=== PATIENT | female | born 1960 | race Caucasian/White ===

== ENCOUNTER 2021-04-19 14:58 | Inpatient (IN) ==
[2021-04-19] MEDS ORDERED: Magnesium Sulfate 2 gm BAG 2 GM/50 ML BAG IVPB ONE (15:19)
[2021-04-19] MEDS ORDERED: methylPREDNISolone 125 mg 2 ML VIAL IV ONE (15:19)
[2021-04-19] MEDS ORDERED: Albuterol HFA INHALER 8 gm MDI INH ONE (15:22)
[2021-04-19 15:42] LABS: ABS Basophils 0.1 10^3/ul (0-0.2); ABS Lymphocytes 1.8 10^3/ul (1.0-4.8); ABS Monocytes 0.9 10^3/ul (0-0.8); ABS Neutrophils 9.9 10^3/ul (1.5-7.7); Eosinophil % 0.1 %; Hematocrit 54 % (35-47); Hemoglobin 18.1 g/dL (12.0-16.0); Lymphocyte % 14.4 %; Mean Corpuscular HGB Conc 33 g/dL (31-36); Mean Corpuscular Hemoglobin 31 pg (27-31); Mean Corpuscular Volume 93 fL (80-97); Mean Platelet Volume 8.5 fL (7.4-10.4); Nucleated Red Blood Cells % 0.1; Platelet Count 210 10^3/uL (150-450); Red Blood Count 5.86 10^6 /uL (3.70-4.87); Red Cell Distribution Width 16 % (10-15); White Blood Count 12.7 10^3/uL (3.5-10.8)
[2021-04-19 16:08] LABS: ALT 21 U/L (7-52); AST 23 U/L (13-39); Albumin 4.1 g/dL (3.2-5.2); Albumin/Globulin Ratio 0.9 (1-3); Alkaline Phosphatase 117 U/L (35-149); Anion Gap 8 mmol/L (2-11); Blood Urea Nitrogen 13 mg/dL (6-24); CO2 Carbon Dioxide 29 mmol/L (22-32); Calcium 9.4 mg/dL (8.6-10.3); Chloride 101 mmol/L (101-111); EGFR African American 109.8 (>60); EGFR Non-African American 90.7 (>60); Globulin 4.7 g/dL (2-4); Glucose 140 mg/dL (70-100); Potassium 4.1 mmol/L (3.5-5.0); Sodium 138 mmol/L (135-145); Total Protein 8.8 g/dL (6.4-8.9)
[2021-04-19] MEDS ORDERED: Iodixanol (CONTRAST) 320 MG/ML 100 ML SDV IV ONE (17:39)
[2021-04-19 19:37] LABS: Troponin I 0.35 ng/mL (<0.03)
[2021-04-19 19:52] LABS: Troponin I 0.01 ng/mL (<0.03)
[2021-04-19] MEDS ORDERED: Furosemide 20 mg/2 ml IV VIAL IV ONE (21:42)
[2021-04-19 22:56] LABS: Urine Appearance Clear; Urine Bacteria 3+ (Absent); Urine Bilirubin Negative (Negative); Urine Blood 1+ (Negative); Urine Color Amber; Urine Glucose Negative (Negative); Urine Ketones 1+ (Negative); Urine Nitrite Positive (Negative); Urine Protein 2+(100 mg/dL) (Negative); Urine Red Blood Cell 1+(3-5/hpf) (Absent); Urine Squamous Epithelial Cell Present (Absent); Urine Urobilinogen Negative (Negative); Urine White Blood Cell 3+(>20/hpf) (Absent)
[2021-04-19] MEDS ORDERED: Albuterol/Ipratropium NEB.SOL (2.5/0.5 MG) 3 ML NEB.SOLN INH SCH (23:00)
[2021-04-20] MEDS: cefTRIAXone 1 gm/50 mL NS BAG 1 GM/50 ML BAG IVPB SCH ×2 (00:35→23:51)
[2021-04-20] MEDS: methylPREDNISolone SOD 40 mg/ml 1 ml VIAL IV SCH ×4 (00:35→23:51)
[2021-04-20] MEDS ORDERED: Albuterol/Ipratropium NEB.SOL (2.5/0.5 MG) 3 ML NEB.SOLN INH SCH (01:00)
[2021-04-20 01:10] LABS: Troponin I 0.51 ng/mL (<0.03)
[2021-04-20 01:49] LABS: Urine Specific Gravity > 1.060 (1.002-1.030)
[2021-04-20] MEDS: Albuterol/Ipratropium NEB.SOL (2.5/0.5 MG) 3 ML NEB.SOLN INH SCH ×5 (03:20→23:29)
[2021-04-20 06:19] LABS: INR 1.1 (0.82-1.09)
[2021-04-20] MEDS: Nystatin TOP POWDER 15 GM BTL TOPICAL SCH ×3 (06:33→20:52)
[2021-04-20 06:55] LABS: ABS Lymphocytes 0.5 10^3/ul (1.0-4.8); ABS Monocytes 0.2 10^3/ul (0-0.8); ABS Neutrophils 12.5 10^3/ul (1.5-7.7); Hematocrit 51 % (35-47); Hemoglobin 16.9 g/dL (12.0-16.0); Lymphocyte % 3.8 %; Mean Corpuscular HGB Conc 33 g/dL (31-36); Mean Corpuscular Hemoglobin 31 pg (27-31); Mean Corpuscular Volume 92 fL (80-97); Mean Platelet Volume 8.7 fL (7.4-10.4); Platelet Count 181 10^3/uL (150-450); Red Blood Count 5.54 10^6 /uL (3.70-4.87); Red Cell Distribution Width 16 % (10-15); White Blood Count 13.2 10^3/uL (3.5-10.8)
[2021-04-20 07:35] LABS: Anion Gap 7 mmol/L (2-11); Blood Urea Nitrogen 16 mg/dL (6-24); CO2 Carbon Dioxide 28 mmol/L (22-32); Calcium 9.2 mg/dL (8.6-10.3); Chloride 102 mmol/L (101-111); EGFR African American 113.8 (>60); Glucose 139 mg/dL (70-100); Magnesium 2.2 mg/dL (1.9-2.7); Potassium 3.9 mmol/L (3.5-5.0); Sodium 137 mmol/L (135-145)
[2021-04-20 07:39] LABS: Troponin I 0.43 ng/mL (<0.03)
[2021-04-20] MEDS ORDERED: Perflutren Lipid Microsphere 3 ML VIAL ONE (08:51)
[2021-04-20] MEDS: Heparin 5000 UNITS/ML 1 mL VIAL SUBCUT SCH ×2 (09:32→20:52)
[2021-04-21 02:56] LABS: ABS Lymphocytes 0.5 10^3/ul (1.0-4.8); ABS Monocytes 0.5 10^3/ul (0-0.8); ABS Neutrophils 14.1 10^3/ul (1.5-7.7); Hematocrit 51 % (35-47); Hemoglobin 16.9 g/dL (12.0-16.0); Mean Corpuscular HGB Conc 33 g/dL (31-36); Mean Corpuscular Hemoglobin 31 pg (27-31); Mean Corpuscular Volume 93 fL (80-97); Mean Platelet Volume 8.5 fL (7.4-10.4); Nucleated Red Blood Cells % 0.1; Platelet Count 183 10^3/uL (150-450); Red Blood Count 5.48 10^6 /uL (3.70-4.87); Red Cell Distribution Width 16 % (10-15); White Blood Count 15.1 10^3/uL (3.5-10.8)
[2021-04-21 03:17] LABS: Blood Urea Nitrogen 23 mg/dL (6-24); CO2 Carbon Dioxide 29 mmol/L (22-32); Calcium 9.2 mg/dL (8.6-10.3); Chloride 104 mmol/L (101-111); EGFR Non-African American 97.5 (>60); Glucose 143 mg/dL (70-100); Magnesium 2.3 mg/dL (1.9-2.7); Phosphorus 3.1 mg/dL (2.5-5.0); Sodium 137 mmol/L (135-145)
[2021-04-21 03:24] LABS: Troponin I 0.41 ng/mL (<0.03)
[2021-04-21 03:36] LABS: Anion Gap 4 mmol/L (2-11)
[2021-04-21] MEDS: Albuterol/Ipratropium NEB.SOL (2.5/0.5 MG) 3 ML NEB.SOLN INH SCH ×3 (07:52→19:38)
[2021-04-21] MEDS: Nystatin TOP POWDER 15 GM BTL TOPICAL SCH ×3 (08:39→20:50)
[2021-04-21] MEDS: methylPREDNISolone SOD 40 mg/ml 1 ml VIAL IV SCH ×2 (08:39→20:50)
[2021-04-21] MEDS: Heparin 5000 UNITS/ML 1 mL VIAL SUBCUT SCH ×2 (08:39→21:00)
[2021-04-21] MEDS ORDERED: methylPREDNISolone SOD 40 mg/ml 1 ml VIAL IV SCH (09:00)
[2021-04-21] MEDS ORDERED: Buffered Lidocaine 1% SYRIN 1 ml INTRADERM ONE (10:12)
[2021-04-21] MEDS: DOXYcycline 100 MG in NS 0.9% 250 ml 250 ML IVPB SCH ×3 (11:57→21:58)
[2021-04-21] MEDS ORDERED: Furosemide 40 mg/4 ml IV VIAL IV ONE (16:56)
[2021-04-21] MEDS: Saline FLUSH-CENTRAL 10 ML SYRINGE CENT\\PICC SCH (20:50)
[2021-04-22] MEDS: Albuterol/Ipratropium NEB.SOL (2.5/0.5 MG) 3 ML NEB.SOLN INH SCH ×4 (00:54→19:40)
[2021-04-22] MEDS: cefTRIAXone 1 gm/50 mL NS BAG 1 GM/50 ML BAG IVPB SCH (00:59)
[2021-04-22] MEDS: DOXYcycline 100 MG in NS 0.9% 250 ml 250 ML IVPB SCH ×2 (02:06→13:27)
[2021-04-22 04:26] LABS: ABS Lymphocytes 0.5 10^3/ul (1.0-4.8); ABS Monocytes 0.5 10^3/ul (0-0.8); ABS Neutrophils 12.8 10^3/ul (1.5-7.7); Hematocrit 52 % (35-47); Hemoglobin 17.3 g/dL (12.0-16.0); Lymphocyte % 3.5 %; Mean Corpuscular HGB Conc 33 g/dL (31-36); Mean Corpuscular Hemoglobin 31 pg (27-31); Mean Corpuscular Volume 93 fL (80-97); Mean Platelet Volume 8.4 fL (7.4-10.4); Platelet Count 177 10^3/uL (150-450); Red Blood Count 5.62 10^6 /uL (3.70-4.87); Red Cell Distribution Width 16 % (10-15); White Blood Count 13.8 10^3/uL (3.5-10.8)
[2021-04-22 04:43] LABS: Calcium 9.2 mg/dL (8.6-10.3); EGFR African American 120.3 (>60); EGFR Non-African American 99.4 (>60); Phosphorus 2.7 mg/dL (2.5-5.0); Potassium 4.1 mmol/L (3.5-5.0)
[2021-04-22] MEDS: methylPREDNISolone SOD 40 mg/ml 1 ml VIAL IV SCH ×2 (07:57→20:24)
[2021-04-22] MEDS: Heparin 5000 UNITS/ML 1 mL VIAL SUBCUT SCH ×2 (07:57→20:24)
[2021-04-22] MEDS: Nystatin TOP POWDER 15 GM BTL TOPICAL SCH ×3 (07:58→20:25)
[2021-04-22] MEDS: Saline FLUSH-CENTRAL 10 ML SYRINGE CENT\\PICC SCH ×2 (07:58→23:35)
[2021-04-23] MEDS: cefTRIAXone 1 gm/50 mL NS BAG 1 GM/50 ML BAG IVPB SCH (00:29)
[2021-04-23] MEDS: DOXYcycline 100 MG in NS 0.9% 250 ml 250 ML IVPB SCH ×2 (01:18→14:44)
[2021-04-23] MEDS: Albuterol/Ipratropium NEB.SOL (2.5/0.5 MG) 3 ML NEB.SOLN INH SCH ×3 (07:14→19:04)
[2021-04-23] MEDS: methylPREDNISolone SOD 40 mg/ml 1 ml VIAL IV SCH ×2 (08:35→20:11)
[2021-04-23] MEDS: Heparin 5000 UNITS/ML 1 mL VIAL SUBCUT SCH ×2 (08:35→20:12)
[2021-04-23] MEDS: Saline FLUSH-CENTRAL 10 ML SYRINGE CENT\\PICC SCH ×2 (08:40→20:12)
[2021-04-23] MEDS: Nystatin TOP POWDER 15 GM BTL TOPICAL SCH ×3 (08:41→20:18)
[2021-04-23 09:38] LABS: ABS Lymphocytes 0.6 10^3/ul (1.0-4.8); ABS Monocytes 0.4 10^3/ul (0-0.8); ABS Neutrophils 8.9 10^3/ul (1.5-7.7); Hematocrit 53 % (35-47); Hemoglobin 17.5 g/dL (12.0-16.0); Lymphocyte % 6.4 %; Mean Corpuscular HGB Conc 33 g/dL (31-36); Mean Corpuscular Hemoglobin 31 pg (27-31); Mean Corpuscular Volume 94 fL (80-97); Mean Platelet Volume 8.7 fL (7.4-10.4); Nucleated Red Blood Cells % 0.1; Platelet Count 181 10^3/uL (150-450); Red Blood Count 5.69 10^6 /uL (3.70-4.87); Red Cell Distribution Width 16 % (10-15); White Blood Count 9.9 10^3/uL (3.5-10.8)
[2021-04-23 09:55] LABS: Calcium 9.4 mg/dL (8.6-10.3); EGFR Non-African American 97.5 (>60); Phosphorus 3.1 mg/dL (2.5-5.0); Potassium 4.2 mmol/L (3.5-5.0)
[2021-04-23] MEDS: Carbamide Peroxide 6.5% OTIC 15 ML BTL BOTH EARS SCH ×2 (14:43→20:11)
[2021-04-24] MEDS: cefTRIAXone 1 gm/50 mL NS BAG 1 GM/50 ML BAG IVPB SCH (01:05)
[2021-04-24] MEDS: DOXYcycline 100 MG in NS 0.9% 250 ml 250 ML IVPB SCH (02:15)
[2021-04-24] MEDS: Albuterol/Ipratropium NEB.SOL (2.5/0.5 MG) 3 ML NEB.SOLN INH SCH ×4 (03:54→19:16)
[2021-04-24 06:17] LABS: ABS Lymphocytes 0.7 10^3/ul (1.0-4.8); ABS Monocytes 0.6 10^3/ul (0-0.8); ABS Neutrophils 7.9 10^3/ul (1.5-7.7); Hematocrit 53 % (35-47); Hemoglobin 17.5 g/dL (12.0-16.0); Lymphocyte % 7.4 %; Mean Corpuscular HGB Conc 33 g/dL (31-36); Mean Corpuscular Hemoglobin 31 pg (27-31); Mean Corpuscular Volume 93 fL (80-97); Mean Platelet Volume 8.7 fL (7.4-10.4); Platelet Count 163 10^3/uL (150-450); Red Blood Count 5.62 10^6 /uL (3.70-4.87); Red Cell Distribution Width 16 % (10-15); White Blood Count 9.1 10^3/uL (3.5-10.8)
[2021-04-24 06:26] LABS: Calcium 9.2 mg/dL (8.6-10.3); Potassium 4.4 mmol/L (3.5-5.0)
[2021-04-24 06:32] LABS: EGFR African American 113.8 (>60); Phosphorus 2.9 mg/dL (2.5-5.0)
[2021-04-24] MEDS: Carbamide Peroxide 6.5% OTIC 15 ML BTL BOTH EARS SCH ×2 (08:49→21:16)
[2021-04-24] MEDS: Heparin 5000 UNITS/ML 1 mL VIAL SUBCUT SCH ×2 (08:51→21:15)
[2021-04-24] MEDS: methylPREDNISolone SOD 40 mg/ml 1 ml VIAL IV SCH ×2 (08:53→21:10)
[2021-04-24] MEDS: Saline FLUSH-CENTRAL 10 ML SYRINGE CENT\\PICC SCH ×2 (08:58→21:16)
[2021-04-24] MEDS: Nystatin TOP POWDER 15 GM BTL TOPICAL SCH ×3 (08:58→21:15)
[2021-04-25] MEDS: cefTRIAXone 1 gm/50 mL NS BAG 1 GM/50 ML BAG IVPB SCH (00:01)
[2021-04-25 06:18] LABS: ABS Lymphocytes 0.6 10^3/ul (1.0-4.8); ABS Monocytes 0.4 10^3/ul (0-0.8); ABS Neutrophils 8.2 10^3/ul (1.5-7.7); Hematocrit 51 % (35-47); Mean Corpuscular HGB Conc 34 g/dL (31-36); Mean Corpuscular Hemoglobin 31 pg (27-31); Mean Corpuscular Volume 93 fL (80-97); Mean Platelet Volume 8.8 fL (7.4-10.4); Platelet Count 160 10^3/uL (150-450); Red Blood Count 5.48 10^6 /uL (3.70-4.87); Red Cell Distribution Width 16 % (10-15); White Blood Count 9.3 10^3/uL (3.5-10.8)
[2021-04-25 06:45] LABS: Calcium 8.7 mg/dL (8.6-10.3); EGFR African American 141.4 (>60); EGFR Non-African American 116.9 (>60); Potassium 4.4 mmol/L (3.5-5.0)
[2021-04-25] MEDS: Albuterol/Ipratropium NEB.SOL (2.5/0.5 MG) 3 ML NEB.SOLN INH SCH (07:12)
[2021-04-25] MEDS ORDERED: Albuterol/Ipratropium NEB.SOL (2.5/0.5 MG) 3 ML NEB.SOLN INH PRN (07:17)
[2021-04-25] MEDS: Heparin 5000 UNITS/ML 1 mL VIAL SUBCUT SCH ×2 (09:00→20:53)
[2021-04-25] MEDS: Nystatin TOP POWDER 15 GM BTL TOPICAL SCH ×3 (09:00→20:53)
[2021-04-25] MEDS: Carbamide Peroxide 6.5% OTIC 15 ML BTL BOTH EARS SCH ×2 (09:00→20:53)
[2021-04-25] MEDS: Saline FLUSH-CENTRAL 10 ML SYRINGE CENT\\PICC SCH ×3 (09:01→21:07)
[2021-04-25] MEDS ORDERED: Alteplase (CATHFLO) 2 MG VIAL IV ONE (12:01)
[2021-04-26] MEDS: cefTRIAXone 1 gm/50 mL NS BAG 1 GM/50 ML BAG IVPB SCH ×3 (00:15→23:04)
[2021-04-26] MEDS: Nystatin TOP POWDER 15 GM BTL TOPICAL SCH ×3 (09:05→21:04)
[2021-04-26] MEDS: Carbamide Peroxide 6.5% OTIC 15 ML BTL BOTH EARS SCH ×2 (09:09→20:22)
[2021-04-26] MEDS: Heparin 5000 UNITS/ML 1 mL VIAL SUBCUT SCH ×2 (09:09→20:20)
[2021-04-26] MEDS: Saline FLUSH-CENTRAL 10 ML SYRINGE CENT\\PICC SCH ×2 (09:09→21:05)
[2021-04-27 07:47] VITALS: BP 119/71
== END 2021-04-27 08:07 | disposition home or self-care (01) | DRG 720 ==
LOC: ED 14:58 → ICU 20:50 → MEDTELE 04-22 17:33
PROVIDERS: ADMIT Hospitalist; ATTEND Internal Medicine

== ENCOUNTER 2023-12-14 18:26 | Inpatient (IN) ==
[2023-12-14] MEDS ORDERED: Albuterol/Ipratropium NEB.SOL (2.5/0.5 MG) 3 ML NEB.SOLN ONE (18:34)
[2023-12-14] MEDS: Albuterol/Ipratropium NEB.SOL (2.5/0.5 MG) 3 ML NEB.SOLN INH ONE ×2 (18:36→21:30)
[2023-12-14] MEDS: Acetylcysteine INHALATION SOL 200 MG/ML NEB.SOLN 10 ML INH ONE (18:50)
[2023-12-14 19:08] LABS: ABS Lymphocytes 1.6 10^3/uL (1.0-4.8); ABS Monocytes 1.1 10^3/uL (0.0-0.9); ABS Neutrophils 8.1 10^3/uL (1.5-7.6); ABS Nucleated RBC 0.02 10^3/ul; Eosinophil % 0.3 %; Hematocrit 47.7 % (35-45); Lymphocyte % 14.7 %; Mean Corpuscular Hemoglobin 30.1 pg (27-33); Mean Corpuscular Hgb Conc 33.6 g/dL (31-36); Mean Corpuscular Volume 89.5 fL (80-97); Mean Platelet Volume 8.1 fL (7.5-11.2); Nucleated Red Blood Cells % 0.2 %/100WBC (0.0-0.8); Platelet Count 221 10^3/uL (150-450); Red Blood Count 5.33 10^6/uL (3.63-4.92); Red Cell Distribution Width 15.2 % (12-17); White Blood Count 10.9 10^3/uL (3.8-11.8)
[2023-12-14 19:23] LABS: Venous Bicarbonate HCO3 32.4 mmol/L (24-28)
[2023-12-14 19:25] LABS: Albumin 3.9 g/dL (3.2-5.2); Albumin/Globulin Ratio 0.8 (1-3); C Reactive Protein 110.19 mg/L (<8.01); Calcium 9.2 mg/dL (8.6-10.3); Creatinine, Serum 0.66 mg/dL (0.51-0.95); Globulin 4.6 g/dL (2-4); Potassium 3.5 mmol/L (3.5-5.0); Total Protein 8.5 g/dL (6.4-8.9); eGFR CKD-EPI 97.9 (>60)
[2023-12-14 19:37] LABS: Magnesium 1.8 mg/dL (1.9-2.7)
[2023-12-14] MEDS: methylPREDNISolone SOD SUCC 125 mg 2 ML VIAL IV ONE (19:50)
[2023-12-14] MEDS: Magnesium Sulfate 2 gm BAG 2 GM/50 ML BAG IVPB ONE (19:50)
[2023-12-14] MEDS: Iodixanol (CONTRAST) 320 MG/ML 100 ML SDV IV ONE (20:55)
[2023-12-14] MEDS: cefTRIAXone 1 gm/50 mL D5W 1 GM/50 ML BAG IV ONE (20:57)
[2023-12-14] MEDS: Azithromycin 500 mg/250 ml NS 500 MG/250 ML BAG IVPB ONE (21:31)
[2023-12-14 21:36] LABS: High Sensitivity Troponin 1 Hr 8 pg/mL (<15)
[2023-12-14] MEDS ORDERED: Senna TAB 8.6 mg TAB PO PRN (23:39)
[2023-12-14] MEDS ORDERED: Ondansetron 4 mg VIAL 2 MG/ML 2 ml VIAL IV PRN (23:39)
[2023-12-14 23:54] LABS: Urine Appearance Clear; Urine Bacteria Absent /HPF (Absent); Urine Bilirubin Negative (Negative); Urine Blood 3+ (Negative); Urine Color Yellow; Urine Glucose Negative (Negative); Urine Ketones 2+ (Negative); Urine Nitrite Negative (Negative); Urine Protein 1+ (>=30 mg/dL) (Negative); Urine Red Blood Cell 3+(>10/hpf) /HPF (0-Trace); Urine Specific Gravity >1.050 (1.002-1.030); Urine Squamous Epithelial Cell Present /HPF (Absent); Urine Urobilinogen 1+ (Negative); Urine White Blood Cell Trace(0-5/hpf) /HPF (0-Trace); Urine pH 5.5 (5.0-8.0)
[2023-12-15] MEDS: Albuterol/Ipratropium NEB.SOL (2.5/0.5 MG) 3 ML NEB.SOLN INH SCH (00:03)
[2023-12-15] MEDS: methylPREDNISolone SOD SUCC 40 mg/ml 1 ml VIAL IV SCH (04:08)
[2023-12-15 06:08] LABS: ABS Lymphocytes 0.5 10^3/uL (1.0-4.8); ABS Monocytes 0.1 10^3/uL (0.0-0.9); ABS Neutrophils 8.9 10^3/uL (1.5-7.6); Hematocrit 44.4 % (35-45); Lymphocyte % 4.9 %; Mean Corpuscular Hemoglobin 30.4 pg (27-33); Mean Corpuscular Hgb Conc 33.8 g/dL (31-36); Mean Corpuscular Volume 89.8 fL (80-97); Mean Platelet Volume 8.2 fL (7.5-11.2); Platelet Count 201 10^3/uL (150-450); Red Blood Count 4.94 10^6/uL (3.63-4.92); Red Cell Distribution Width 15.3 % (12-17); White Blood Count 9.5 10^3/uL (3.8-11.8)
[2023-12-15 06:27] LABS: Albumin 3.6 g/dL (3.2-5.2); Albumin/Globulin Ratio 0.9 (1-3); Calcium 8.7 mg/dL (8.6-10.3); Creatinine, Serum 0.49 mg/dL (0.51-0.95); Globulin 4.1 g/dL (2-4); Potassium 3.9 mmol/L (3.5-5.0); Total Bilirubin 0.7 mg/dL (0.2-1.0); Total Protein 7.7 g/dL (6.4-8.9); eGFR CKD-EPI 105.2 (>60)
[2023-12-15 08:36] LABS: Magnesium 2.3 mg/dL (1.9-2.7)
[2023-12-15] MEDS: Ammonium Lactate 12% 1 APPLIC TUBE TOPICAL SCH (10:20)
[2023-12-15] MEDS ORDERED: Azithromycin 250 MG in NS 0.9% 250 ml 250 ML IVPB SCH (20:00)
[2023-12-15] MEDS: Azithromycin 250 MG in NS 0.9% 250 ml 250 ML IVPB SCH (20:22)
[2023-12-15] MEDS ORDERED: cefTRIAXone 1 gm/50 mL D5W 1 GM/50 ML BAG IV SCH (21:00)
[2023-12-15] MEDS: cefTRIAXone 1 gm/50 mL NS BAG 1 GM/50 ML BAG IV SCH (21:45)
[2023-12-16 06:22] LABS: ABS Basophils 0.1 10^3/uL (0.0-0.1); ABS Monocytes 0.5 10^3/uL (0.0-0.9); ABS Neutrophils 11.5 10^3/uL (1.5-7.6); ABS Nucleated RBC 0.01 10^3/ul; Hematocrit 43.6 % (35-45); Hemoglobin 14.6 g/dL (11.5-14.3); Lymphocyte % 7.8 %; Mean Corpuscular Hgb Conc 33.6 g/dL (31-36); Mean Corpuscular Volume 89.4 fL (80-97); Mean Platelet Volume 8.1 fL (7.5-11.2); Nucleated Red Blood Cells % 0.1 %/100WBC (0.0-0.8); Platelet Count 250 10^3/uL (150-450); Red Blood Count 4.87 10^6/uL (3.63-4.92); Red Cell Distribution Width 15.4 % (12-17); White Blood Count 13.1 10^3/uL (3.8-11.8)
[2023-12-16 06:38] LABS: Calcium 9.2 mg/dL (8.6-10.3); Creatinine, Serum 0.56 mg/dL (0.51-0.95); Potassium 4.1 mmol/L (3.5-5.0); eGFR CKD-EPI 101.8 (>60)
[2023-12-16] MEDS ORDERED: Albuterol/Ipratropium NEB.SOL (2.5/0.5 MG) 3 ML NEB.SOLN INH PRN (06:42)
[2023-12-16] MEDS: Nystatin TOP POWDER 15 GM BTL TOPICAL SCH (14:26)
[2023-12-17] MEDS: Lidocaine PATCH 5% PATCH TRANSDERM SCH (15:45)
[2023-12-17 15:54] LABS: INR 1.16 (0.83-1.13)
[2023-12-17] MEDS: Lactated Ringers 1000 ml BAG 500 ML IV ONE (22:01)
[2023-12-17] MEDS: Lactated Ringers 1000 ml BAG 1,000 ML IV SCH (22:36)
[2023-12-18] MEDS: Lactated Ringers 1000 ml BAG 500 ML IV ONE ×2 (00:40→22:24)
[2023-12-18 00:54] LABS: Hematocrit 32.8 % (35-45); Hemoglobin 11.1 g/dL (11.5-14.3); Mean Corpuscular Hemoglobin 29.9 pg (27-33); Mean Corpuscular Hgb Conc 33.8 g/dL (31-36); Mean Corpuscular Volume 88.6 fL (80-97); Mean Platelet Volume 8.4 fL (7.5-11.2); Platelet Count 274 10^3/uL (150-450); White Blood Count 20.9 10^3/uL (3.8-11.8)
[2023-12-18 01:12] LABS: Calcium 8.5 mg/dL (8.6-10.3); Creatinine, Serum 1.17 mg/dL (0.51-0.95); Globulin 3.1 g/dL (2-4); Potassium 4.2 mmol/L (3.5-5.0); Total Bilirubin 0.8 mg/dL (0.2-1.0); Total Protein 6.1 g/dL (6.4-8.9); eGFR CKD-EPI 52.1 (>60)
[2023-12-18] MEDS: Iodixanol (CONTRAST) 320 MG/ML 100 ML SDV IV ONE (03:48)
[2023-12-18 05:21] LABS: Hematocrit 28.9 % (35-45); Hemoglobin 9.7 g/dL (11.5-14.3); Mean Corpuscular Hemoglobin 29.8 pg (27-33); Mean Corpuscular Hgb Conc 33.5 g/dL (31-36); Mean Corpuscular Volume 89.1 fL (80-97); Mean Platelet Volume 8.5 fL (7.5-11.2); Platelet Count 234 10^3/uL (150-450); Red Blood Count 3.25 10^6/uL (3.63-4.92); Red Cell Distribution Width 14.9 % (12-17); White Blood Count 23.7 10^3/uL (3.8-11.8)
[2023-12-18 05:25] LABS: Calcium 8.2 mg/dL (8.6-10.3); Creatinine, Serum 1.41 mg/dL (0.51-0.95); Potassium 4.3 mmol/L (3.5-5.0); eGFR CKD-EPI 41.7 (>60)
[2023-12-18 05:29] LABS: ABS Basophils 0.1 10^3/uL (0.0-0.1); ABS Lymphocytes 2.4 10^3/uL (1.0-4.8); ABS Monocytes 2.6 10^3/uL (0.0-0.9); ABS Neutrophils 18.7 10^3/uL (1.5-7.6); ABS Nucleated RBC 0.02 10^3/ul; Nucleated Red Blood Cells % 0.1 %/100WBC (0.0-0.8)
[2023-12-18] MEDS: HYDROmorphone 0.5 MG/0.5 ML SYRINGE ONE ×2 (05:56→07:14)
[2023-12-18 06:36] LABS: ABS Basophils 0.2 10^3/uL (0.0-0.1); ABS Lymphocytes 2.1 10^3/uL (1.0-4.8); ABS Monocytes 2.1 10^3/uL (0.0-0.9); ABS Neutrophils 16.6 10^3/uL (1.5-7.6); ABS Nucleated RBC 0.01 10^3/ul; Eosinophil % 0.2 %
[2023-12-18 06:37] LABS: RBC Morphology Normal (Normal)
[2023-12-18] MEDS: HYDROmorphone 0.5 MG/0.5 ML SYRINGE IV SLOW PU PRN (06:42)
[2023-12-18] MEDS: Acetaminophen IV 1 GM/100ML 1,000 MG/100 ML BAG IV ONE (07:12)
[2023-12-18 08:17] LABS: Hematocrit 37.4 % (35-45); Hemoglobin 12.4 g/dL (11.5-14.3); Mean Corpuscular Hemoglobin 28.7 pg (27-33); Mean Corpuscular Hgb Conc 33.1 g/dL (31-36); Mean Corpuscular Volume 86.7 fL (80-97); Mean Platelet Volume 8.4 fL (7.5-11.2); Platelet Count 191 10^3/uL (150-450); Red Blood Count 4.31 10^6/uL (3.63-4.92); Red Cell Distribution Width 16.4 % (12-17); White Blood Count 22.7 10^3/uL (3.8-11.8)
[2023-12-18 08:19] LABS: ABS Lymphocytes 2.2 10^3/uL (1.0-4.8); ABS Monocytes 2.5 10^3/uL (0.0-0.9); ABS Nucleated RBC 0.01 10^3/ul; Lymphocyte % 9.6 %
[2023-12-18 08:36] LABS: Creatinine, Serum 1.37 mg/dL (0.51-0.95); Potassium 4.3 mmol/L (3.5-5.0); eGFR CKD-EPI 43.1 (>60)
[2023-12-18] MEDS: Acetaminophen IV 1 GM/100ML 1,000 MG/100 ML BAG IV SCH (08:54)
[2023-12-18] MEDS: NORMOSOL-R pH 7.4 1000 mL BAG 1,000 ML IV SCH (08:56)
[2023-12-18] MEDS ORDERED: NORMOSOL-R pH 7.4 1000 mL BAG 1,000 ML IV SCH ×2 (09:00)
[2023-12-18 09:01] LABS: Activated Partial Thrombo Time 33.6 seconds (26.0-38.0)
[2023-12-18] MEDS ORDERED: Senna TAB 8.6 mg TAB PO PRN (10:16)
[2023-12-18] MEDS ORDERED: HYDROmorphone 1 MG/1 ML SYRINGE IV PRN (10:28)
[2023-12-18] MEDS: Norepinephrine 4 MG/250mL D5W 4,000 MCG/250 ML BAG IV SCH ×2 (11:26→12:00)
[2023-12-18] MEDS: Norepinephrine 4 MG/250mL D5W 4,000 MCG/250 ML BAG IV ONE (11:37)
[2023-12-18] MEDS: methylPREDNISolone SOD SUCC 40 mg/ml 1 ml VIAL IV SCH (11:55)
[2023-12-18 12:19] LABS: Hematocrit 38.3 % (35-45); Hemoglobin 12.8 g/dL (11.5-14.3); Mean Corpuscular Hgb Conc 33.4 g/dL (31-36); Mean Corpuscular Volume 86.7 fL (80-97); Mean Platelet Volume 8.7 fL (7.5-11.2); Platelet Count 185 10^3/uL (150-450); Red Blood Count 4.42 10^6/uL (3.63-4.92); Red Cell Distribution Width 15.9 % (12-17); White Blood Count 25.7 10^3/uL (3.8-11.8)
[2023-12-18 12:20] LABS: Urine Appearance Turbid; Urine Bacteria 1+ /HPF (Absent); Urine Bilirubin Negative (Negative); Urine Blood 2+ (Negative); Urine Color Dark-Yellow; Urine Glucose Trace (Negative); Urine Ketones Negative (Negative); Urine Nitrite Negative (Negative); Urine Protein 2+ (>=100 mg/dL) (Negative); Urine Red Blood Cell 3+(>10/hpf) /HPF (0-Trace); Urine Specific Gravity >1.050 (1.002-1.030); Urine Squamous Epithelial Cell Present /HPF (Absent); Urine Urobilinogen 1+ (Negative); Urine White Blood Cell 1+(6-10/hpf) /HPF (0-Trace); Urine pH 5.5 (5.0-8.0)
[2023-12-18] MEDS ORDERED: Heparin 2 UNITS/ML IVPREMIX 3,000 UNIT/1,500 ML BAG IV ONE (14:38)
[2023-12-18] MEDS ORDERED: Lidocaine 1% VIAL 10 MG/ML 30 ML VIAL ONE (14:38)
[2023-12-18] MEDS ORDERED: Iohexol 350 (CONTRAST) 100 ML PAK IV ONE (14:38)
[2023-12-18] MEDS ORDERED: Iodixanol 320 (CONTRAST) 100 ML SDV ONE ×2 (14:40→15:57)
[2023-12-18] MEDS ORDERED: Midazolam 5 mg/5 ml VIAL 1 mg/ml 5 ml VIAL (5 mg) ONE (15:14)
[2023-12-18] MEDS ORDERED: fentaNYL 100 mcg/2 ml 50 MCG/ML VIAL ONE (15:14)
[2023-12-18] MEDS ORDERED: Ondansetron 4 mg VIAL 2 MG/ML 2 ml VIAL ONE (15:15)
[2023-12-18] MEDS: NS 0.9% 1000 ml BAG 1,000 ML IV ONE (16:00)
[2023-12-18] MEDS: PHENYLEPHRINE DRIP IVPREMIX 50 MG/250 ML BAG IV SCH (16:25)
[2023-12-18] MEDS ORDERED: Norepinephrine 4 MG/250mL D5W 4,000 MCG/250 ML BAG IV ONE (16:56)
[2023-12-18] MEDS: Magnesium Sulfate 2 gm BAG 2 GM/50 ML BAG IVPB ONE (17:50)
[2023-12-18 17:55] LABS: Hematocrit 35.5 % (35-45); Hemoglobin 11.7 g/dL (11.5-14.3); Mean Corpuscular Hemoglobin 29.1 pg (27-33); Mean Corpuscular Volume 88.2 fL (80-97); Mean Platelet Volume 8.9 fL (7.5-11.2); Platelet Count 189 10^3/uL (150-450); Red Blood Count 4.03 10^6/uL (3.63-4.92); Red Cell Distribution Width 15.9 % (12-17)
[2023-12-18 18:25] LABS: Albumin 2.6 g/dL (3.2-5.2); Calcium 7.2 mg/dL (8.6-10.3); Creatinine, Serum 1.97 mg/dL (0.51-0.95); Globulin 2.5 g/dL (2-4); Potassium 4.3 mmol/L (3.5-5.0); Total Bilirubin 1.5 mg/dL (0.2-1.0); Total Protein 5.1 g/dL (6.4-8.9); eGFR CKD-EPI 27.9 (>60)
[2023-12-18 19:01] LABS: Activated Partial Thrombo Time 32.9 seconds (26.0-38.0); INR 1.6 (0.83-1.13)
[2023-12-18] MEDS: HYDROmorphone 0.5 MG/0.5 ML SYRINGE IV PRN (22:17)
[2023-12-18 22:31] LABS: Hemoglobin 11.9 g/dL (11.5-14.3); Mean Corpuscular Hemoglobin 28.4 pg (27-33); Mean Corpuscular Hgb Conc 32.2 g/dL (31-36); Mean Corpuscular Volume 88.2 fL (80-97); Platelet Count 154 10^3/uL (150-450); Red Cell Distribution Width 15.8 % (12-17); White Blood Count 41.8 10^3/uL (3.8-11.8)
[2023-12-19] MEDS ORDERED: Zosyn per Pharmacy NOTE FOLLOW UP SCH (04:00)
[2023-12-19] MEDS ORDERED: Vancomycin per Pharmacy 1 EA NOTE FOLLOW UP SCH (04:00)
[2023-12-19] MEDS: Norepinephrine *QUAD STRENGTH* 16 mg/250 mL NS PREMIX (ICU ONLY) IV SCH (04:01)
[2023-12-19] MEDS: Piperacillin/Tazobac 3.375 BAG 3.375 GM/100 ML BAG IV ONE (04:15)
[2023-12-19 05:18] LABS: Hematocrit 34.4 % (35-45); Hemoglobin 11.3 g/dL (11.5-14.3); Mean Corpuscular Hgb Conc 32.9 g/dL (31-36); Mean Corpuscular Volume 88.3 fL (80-97); Mean Platelet Volume 9.7 fL (7.5-11.2); Platelet Count 149 10^3/uL (150-450); Red Cell Distribution Width 15.7 % (12-17); White Blood Count 43.2 10^3/uL (3.8-11.8)
[2023-12-19] MEDS: LORazepam 2 mg VIAL 1 ml ONE ×2 (05:21→14:02)
[2023-12-19] MEDS: Vancomycin 1,250 MG in NS 0.9% 250 ml 250 ML IVPB ONE (05:22)
[2023-12-19] MEDS ORDERED: Lorazepam PYXIS KEY PRN ×3 (05:25→13:48)
[2023-12-19 05:26] LABS: PCO2 Arterial 27 mmHg (35-45); PO2 Arterial 68 mmHg (80-100)
[2023-12-19 05:30] LABS: Albumin 2.5 g/dL (3.2-5.2); Calcium 7.2 mg/dL (8.6-10.3); Creatinine, Serum 2.57 mg/dL (0.51-0.95); Globulin 2.6 g/dL (2-4); Magnesium 2.4 mg/dL (1.9-2.7); Phosphorus 7.1 mg/dL (2.5-5.0); Potassium 5.1 mmol/L (3.5-5.0); Total Bilirubin 1.4 mg/dL (0.2-1.0); Total Protein 5.1 g/dL (6.4-8.9); eGFR CKD-EPI 20.3 (>60)
[2023-12-19] MEDS: NS 0.9% 1000 ml BAG 1,000 ML IV ONE (06:23)
[2023-12-19 06:41] LABS: PCO2 Arterial 37 mmHg (35-45); PO2 Arterial 111 mmHg (80-100)
[2023-12-19] MEDS: LORazepam 2 mg VIAL 1 ml IV PUSH ONE ×3 (07:25→13:45)
[2023-12-19] MEDS: Sodium Bicarbonate 8.4% SYR 50 ml SYRINGE IV ONE ×2 (07:55→09:17)
[2023-12-19] MEDS ORDERED: ZOSYN 3.375 GM Q8H per EXTENDED INFUSION IV SCH (08:00)
[2023-12-19] MEDS: ZOSYN 3.375 GM Q12H per EXTENDED INFUSION IV SCH (08:04)
[2023-12-19] MEDS: VASOPRESSIN IVPREMIX BTL 40 UNIT/100 ML BTL IV SCH (08:37)
[2023-12-19] MEDS: Pantoprazole VIAL 40 MG VIAL IV SCH (09:17)
[2023-12-19] MEDS: Sodium Bicarbonate 8.4% SYR 50 ml SYRINGE ONE (09:26)
[2023-12-19] MEDS: Vasopressin 100 UNITS in D5W 250 ml BAG 245 ML IV SCH (09:36)
[2023-12-19] MEDS: Acetaminophen IV 1 GM/100ML 1,000 MG/100 ML BAG IV PRN (10:21)
[2023-12-19 10:30] LABS: Activated Partial Thrombo Time 30.3 seconds (26.0-38.0); INR 3.33 (0.83-1.13)
[2023-12-19 10:45] LABS: Hematocrit 38.3 % (35-45); Hemoglobin 12.7 g/dL (11.5-14.3); Mean Corpuscular Hemoglobin 28.5 pg (27-33); Mean Corpuscular Hgb Conc 33.2 g/dL (31-36); Mean Platelet Volume 10.1 fL (7.5-11.2); Platelet Count 148 10^3/uL (150-450); Red Blood Count 4.46 10^6/uL (3.63-4.92); Red Cell Distribution Width 17.3 % (12-17); White Blood Count 47.8 10^3/uL (3.8-11.8)
[2023-12-19] MEDS: Lactated Ringers 1000 ml BAG 1,000 ML IV SCH (13:00)
[2023-12-19] MEDS: Propofol 10 mg/ml 100 ML BTL 1,000 MG/100 ML BTL IV SCH (13:30)
[2023-12-19] MEDS: Morphine 2 MG/ML SYRINGE IV PRN (13:30)
[2023-12-19] MEDS: LORazepam 2 mg VIAL 1 ml IV PUSH PRN (13:30)
[2023-12-19] MEDS: Morphine 4 MG/ML VIAL (1 ml) IV PRN (13:40)
[2023-12-19] MEDS: Propofol 10 mg/ml 100 ML BTL 1,000 MG/100 ML BTL ONE (13:58)
[2023-12-19] MEDS: Norepinephrine 4 MG/250mL D5W 0 MCG/0 ML BAG IV ONE (13:58)
[2023-12-19] MEDS: Phenylephrine 40 mcg/mL 10mL (400mcg) SYRINGE ONE (14:00)
[2023-12-19] MEDS: Etomidate 20 mg/10 ml 2 MG/ML 10 ml VIAL ONE (14:00)
[2023-12-19] MEDS: Morphine 2 MG/ML SYRINGE ONE (14:03)
[2023-12-19] MEDS: Morphine 4 MG/ML VIAL (1 ml) ONE (14:04)
[2023-12-19 14:10] VITALS: BP 86/49
[2023-12-20] MEDS ORDERED: Vancomycin Random Level NOTE FOLLOW UP ONE (06:00)
== END 2023-12-19 14:39 | disposition expired | DRG 134 ==
LOC: EDHOLD 18:26 → ED 18:26 → SUATTDRO 22:59 → MED 12-15 15:22 → ICU 12-18 03:59
PROVIDERS: ADMIT Internal Medicine; ATTEND Hospitalist